=== PATIENT | female | born 1935 | race Hispanic/Latino ===

== ENCOUNTER → 2024-07-20 | Outpatient (REF) | payer MEDICARE ==
[~2024-07-20] MED LIST: ALENDRONATE SOD70 MG PO; ENALAPRIL MALEA20 MG PO; FENOFIBRATE134 MG PO; INSULIN PEN SC; JANUVIA100 MG PO; LEVOTHYROXINE50 MCG PO; NEXIUM40 MG PO; NOVOLOG MI100 UNITS/ SC; PIOGLITAZONE45 MG PO; TRAMADOL-ACETAMI1 EA PO
== END ==
LOC: US 09:15
PROVIDERS: ATTEND Nurse Practitioner Family
DX: R10.13 Epigastric pain (principal); R10.30 Lower abdominal pain, unspecified
CPT/HCPCS: 76700; 76856